=== PATIENT | male | born 1995 | race Asian ===

== ENCOUNTER 2016-05-25 20:45 | Emergency (ER) | payer OTHER ==
[~2016-05-25] VITALS: Ht 177.8 cm; Wt 63.5 kg
[2016-05-25 21:08] VITALS: BP 101/63
[2016-05-25] MEDS ORDERED: IBUPROFEN 600 MG TABLET PO ONE ×2 (21:57→22:00)
[2016-05-25] MEDS ORDERED: ONDANSETRON 4 MG TAB.RAPDIS ONE (21:57)
[2016-05-25] MEDS ORDERED: ONDANSETRON 4 MG TAB.RAPDIS SL ONE (22:00)
== END 2016-05-25 22:27 | disposition home or self-care (01) ==
LOC: ER 20:51
DX: J11.1 Influenza due to unidentified influenza virus with other respiratory manifestations (principal); J02.8 Acute pharyngitis due to other specified organisms; R11.0 Nausea
CPT/HCPCS: 99283; A4606; Q0162; Z7610